=== PATIENT | female | born 1975 | race Caucasian/White ===

== ENCOUNTER → 2018-05-13 | Outpatient (CLI) | payer OTHER ==
[~2018-05-13] MED LIST: ALBIPROI INH; ALBU90OI; ALBU90OI INH; AZIT250 PO; Ativan0.5 MG PO; BUPR150ER PO; BUSP10 PO; CEPH500 PO; CIPR500 PO; CITA20; CLIN300 PO; CLON.5 PO; CLON1 PO; CRUTCH4 USE; CYCL10; CYCL10 PO; Catapres0.1 MG PO; DHEA PO; DIVA250EC PO; DULO30; ESCI10 PO; ESTR2; Estradiol1 MG; Estradiol1 MG PO; FAMO20 PO; FIORICET PO; HYDACE5; HYDACE5 PO; HYDGUAL120 PO; HYDPAM25 PO; IBUP800 PO; LANS15EC PO; LORA.5 PO; LORA1 PO; LORA2 PO; METPHE20; MOXI400; MUCINEX; NAPR220 PO; NAPR500 PO; NEBI5 PO; NICO21TP TOP; NUVA RING; Norco 5-325 Ta1 EACH PO; OFLO.3OTSO; ONDA4 PO; ONDA8; OXYACE5T; OXYACE5T PO; PHENA200 PO; PROC10 PO; PROM25 PO; PSEU120ER PO; SUCR1 PO; TRAM50 PO; TRIA55OI; [UNRECOGNIZED DRUG - OTHER]
== END | disposition home or self-care (01) ==
LOC: LAB EV 09:45 → LAB SHORT 09:45
DX: R30.0 Dysuria (principal)
CPT/HCPCS: 87086

== ENCOUNTER 2018-09-02 14:43 | Emergency (ER) | payer OTHER ==
[~2018-09-02] VITALS: Ht 167.6 cm; Wt 97.5 kg
[2018-09-02] MEDS ORDERED: BUPR150ER PO (15:42)
[2018-09-02] MEDS ORDERED: NEBI10 PO (15:43)
[2018-09-02] MEDS ORDERED: METPRE4DP PO (15:46)
== END 2018-09-02 15:58 | disposition home or self-care (01) ==
LOC: ER 14:43
DX: J40 Bronchitis, not specified as acute or chronic (principal); Z91.012 Allergy to eggs; Z88.0 Allergy status to penicillin; Z88.2 Allergy status to sulfonamides; Z91.040 Latex allergy status; Z91.018 Allergy to other foods; Z79.899 Other long term (current) drug therapy; F31.9 Bipolar disorder, unspecified; F17.210 Nicotine dependence, cigarettes, uncomplicated
CPT/HCPCS: 71046; 94640; 99283-25

== ENCOUNTER 2021-03-21 15:06 | Emergency (ER) | payer OTHER ==
[~2021-03-21] VITALS: Ht 165.1 cm; Wt 93.9 kg
[~2021-03-21 15:06] MED LIST changes: +METPRE4DP PO; +NEBI10 PO
[2021-03-21] MEDS ORDERED: ESCI20 PO (17:20)
[2021-03-21] MEDS ORDERED: CYCL10 PO (17:37)
== END 2021-03-21 17:50 | disposition home or self-care (01) ==
LOC: ER 15:06
DX: U07.1 COVID-19 (principal); M62.830 Muscle spasm of back; M54.2 Cervicalgia; G89.29 Other chronic pain; Z91.012 Allergy to eggs; Z88.0 Allergy status to penicillin; Z88.2 Allergy status to sulfonamides; Z91.018 Allergy to other foods; Z79.899 Other long term (current) drug therapy
CPT/HCPCS: 96372; 99282-25; A9270; J1885

== ENCOUNTER 2023-03-11 09:39 | Day surgery (SDC) | payer OTHER ==
[2023-03-11] VITALS (16 sets, daily range): BP systolic 98–168; BP diastolic 61–101
[~2023-03-11] VITALS: Ht 167.6 cm; Wt 95.5 kg
[~2023-03-11 09:39] MED LIST changes: +BACL10 PO; +Bisoprolol Fuma10 MG PO; +Budeprion Xl300 MG PO; +DERMACINRX FOL1 EAC2 PO; +ESCI20 PO; +MELO7.5; +MONT10T; +OMEP20ER PO
[2023-03-11] MEDS ORDERED: MULVITA PO (10:21)
--- NOTE | 2023-03-11 10:27 | NUR ---
03/11/23 1027 Sharri Noonan HISTORY, CHART, MEDICATIONS AND ALLERGIES REVIEWED BEFORE START OF PROCEDURE. PATIENT CONFIRMS NPO STATUS AND AGREES WITH SCHEDULED PROCEDURE. 3-LEAD EKG REVIEWED WITH PHYSICIAN PRIOR TO START OF PROCEDURE. MONITOR INTACT WITH CONTINUOUS PULSE OXIMETRY,CAPNOGRAPHY, 3-LEAD EKG, INTERMITTENT BP. SUPPLEMENTAL O2 TO BE TITRATED THROUGHOUT PROCEDURE TO MAINTAIN O2 SATURATION ABOVE 90%. PATIENT DETERMINED TO BE ASA APPROPRIATE FOR PROPOFOL SEDATION PRIOR TO START OF PROCEDURE BY DR. CHE.
--- NOTE | 2023-03-11 11:22 | NUR ---
REPORT RECIEVED. VSS. PT UP IN BED. ON ROOM AIR
--- NOTE | 2023-03-11 11:39 | NUR ---
Patient up to Ambulate independently. Gait steady. Discharge instructions reviewed with patient. Patient verbalizes understanding. Copy given to patient to take home. Discharged via wheelchair to private car for ride home.
== END 2023-03-11 11:41 | disposition home or self-care (01) ==
LOC: ORSCMMR 09:39 → ORD 10:30 → ORSCMMR 11:41
PROVIDERS: Internal Medicine Gastroenterology
PROC: 0DBM8ZX Excision of Descending Colon, Via Natural or Artificial Opening Endoscopic, Diagnostic (ICD-10-PCS; principal; 2023-03-11 10:30)
PROC: 0DBN8ZX Excision of Sigmoid Colon, Via Natural or Artificial Opening Endoscopic, Diagnostic (ICD-10-PCS; principal; 2023-03-11 10:30)
DX: Z12.11 Encounter for screening for malignant neoplasm of colon (principal); K63.5 Polyp of colon; Z79.899 Other long term (current) drug therapy; F17.210 Nicotine dependence, cigarettes, uncomplicated; E66.9 Obesity, unspecified; Z68.34 Body mass index [BMI] 34.0-34.9, adult
CPT/HCPCS: 88305; J2250; J2704; J7120

== ENCOUNTER → 2024-06-30 | Outpatient (CLI) | payer OTHER ==
[~2024-06-30] MED LIST changes: +MULVITA PO
[2024-06-30 10:38] LABS: Microalbumin, Urine Quant. <5.000 mg/L (0.000-20.000); Protein, Urine Quantitative <5.0 mg/dL (0.0-11.9)
== END | disposition home or self-care (01) ==
LOC: LAB 08:13 → LAB SHORT 08:13
PROVIDERS: Internal Medicine Nephrology
DX: N18.2 Chronic kidney disease, stage 2 (mild) (principal); D63.1 Anemia in chronic kidney disease; N25.81 Secondary hyperparathyroidism of renal origin; E55.9 Vitamin D deficiency, unspecified; E78.00 Pure hypercholesterolemia, unspecified; R76.9 Abnormal immunological finding in serum, unspecified; R94.5 Abnormal results of liver function studies; R94.6 Abnormal results of thyroid function studies; D51.8 Other vitamin B12 deficiency anemias; D50.9 Iron deficiency anemia, unspecified
CPT/HCPCS: 81050; 82043; 82570; 84156

== ENCOUNTER → 2024-10-10 | Outpatient (CLI) | payer OTHER ==
[2024-10-10 19:08] LABS: BASOPHILS ABSOLUTE AUTO 0.09 K/mm3 (0.00-0.23); BASOPHILS PERCENT AUTO 1 % (0-2); EOSINOPHILS ABSOLUTE AUTO 0.42 K/mm3 (0.00-0.68); EOSINOPHILS PERCENT AUTO 5 % (0-6); Hematocrit 39.6 % (33.0-51.0); Hemoglobin 13.7 g/dL (11.5-16.0); IMMATURE GRAN ABSOLUTE AUTO 0.03 K/mm3 (0.00-0.10); IMMATURE GRAN PERCENT AUTO 0 % (0-1); LYMPHOCYTES ABSOLUTE AUTO 1.96 K/mm3 (0.84-5.20); LYMPHOCYTES PERCENT AUTO 22 % (21-46); MONOCYTES ABSOLUTE AUTO 1.11 K/mm3 (0.16-1.47); MONOCYTES PERCENT AUTO 13 % (4-13); Mean Corpuscular HGB 30.2 pg (26.0-34.0); Mean Corpuscular HGB Conc 34.6 g/dL (31.5-36.5); Mean Corpuscular Volume 87 fL (80-100); Mean Platelet Volume 9.9 fL (9.1-12.4); NEUTROPHILS ABSOLUTE AUTO 5.24 K/mm3 (1.96-9.15); NEUTROPHILS PERCENT AUTO 59 % (41-73); Platelet Count 272 K/mm3 (150-400); RDW Standard Deviation 41.5 fL (35.1-46.3); Red Blood Cell Count 4.54 M/mm3 (3.80-5.20); White Blood Cell Count 8.85 K/mm3 (4.00-11.30)
[2024-10-10 20:10] LABS: Alanine Aminotransfer (ALT/SGP 27 U/L (12-78); Albumin, Blood 3.8 g/dL (3.4-5.0); Albumin/Globulin Ratio 1.1 (0.8-1.8); Alk Phos 143 U/L (50-136); Anion Gap 12 mmol/L (3-11); Aspartate Aminotrans (AST/SGOT 23 U/L (12-37); Bilirubin, Total 0.5 mg/dL (0.1-1.0); Blood Urea Nitrogen 12 mg/dL (8-24); Bun/Creatinine Ratio 11.5 (12.0-20.0); CHOL/HDL RATIO 2.2; CO2, Blood 25 mmol/L (21-32); Calcium, Blood 9.2 mg/dL (8.5-10.1); Chloride, Blood 102 mmol/L (98-108); Cholesterol 155 mg/dL (50-200); Creatinine, Blood 1.04 mg/dL (0.40-1.00); Globulin, Blood 3.6 g/dL (2.2-4.0); Glomerular Filtration Rate 66 (60-); Glucose, Blood 109 mg/dL (70-99); HDL Cholesterol 69 mg/dL (>39); Iron Serum 60 ug/dL (50-170); LDL/HDL RATIO 0.9; Low Density Lipoprotein Chol 63 mg/dL (0-110); Percent Saturation 18.6 % (15.0-50.0); Potassium, Blood 3.6 mmol/L (3.5-5.5); Sodium, Blood 135 mmol/L (136-145); Total Iron Binding Capacity 323 ug/dL (250-450); Total Protein, Blood 7.4 g/dL (6.4-8.2); Triglycerides 117 mg/dL (30-160); Very Low Density Lipoprot Chol 23 mg/dL (6-32)
== END ==
LOC: LAB 18:58 → LAB SHORT 18:58
PROVIDERS: Nurse Practitioner Family
DX: I10 Essential (primary) hypertension (principal)
CPT/HCPCS: 80053; 80061; 83540; 83550; 85025

== ENCOUNTER → 2025-03-08 | Outpatient (CLI) | payer OTHER ==
[2025-03-08 16:55] LABS: Bacterial Vaginosis PCR Negative (NEGATIVE); Candida glabrata-krusei, PCR NOT DETECTED (NOT DETECT)
[2025-03-08 16:56] LABS: Candida Group, PCR DETECTED (NOT DETECT)
== END | disposition home or self-care (01) ==
LOC: LAB 13:51 → LAB SHORT 13:51
PROVIDERS: Physician Assistant
DX: N89.8 Other specified noninflammatory disorders of vagina (principal)
CPT/HCPCS: 81515